=== PATIENT | female | born 1935 | race Caucasian/White ===

== ENCOUNTER → 2024-12-17 | Outpatient (CLI) | payer MEDICARE, SELFPAY ==
--- NOTE | 2024-12-17 15:55 | CT_ITS ---
PROCEDURE: EXTREMITY UPPER WITHOUT CONTRA 12/17/2024 REASON FOR EXAM: FRACTURE EVALUATION Left shoulder pain. TECHNIQUE: Axial CT images of the left shoulder obtained without intravenous contrast. Coronal and Sagittal reconstruction series were provided. One or more dose reduction techniques were used (e.g., Automated exposure control, adjustment of the mA and/or kV according to patient size, use of iterative reconstruction technique RADIATION DOSE SUMMARY: CTDlvol: 30 mGy DLP: 616 mGycm COMPARISON: None FINDINGS: Acute extensively comminuted moderately impacted fracture of the proximal humeral head and neck with maximum displacement of approximately 3.5 Cm. Articular portion of the proximal humeral head remains in articulation with the glenoid. Small glenohumeral joint effusion. Left scapula appears intact. Left clavicle appears intact. Moderate acromioclavicular osteoarthritis. Mild glenohumeral osteoarthritis. Moderate soft tissue stranding adjacent to the proximal humeral fracture. No fluid collection seen. CT/Extremity Upper without Contra IMPRESSION: Acute comminuted impacted angulated fracture of the proximal humeral head and n jeferson Reading [facility]
== END | disposition home or self-care (01) ==
LOC: CT 15:52
PROVIDERS: PCP Family Medicine; Referring Provider Orthopaedic Surgery Sports Medicine; Visit Provider Orthopaedic Surgery Sports Medicine
DX: S42.202A Unspecified fracture of upper end of left humerus, initial encounter for closed fracture (principal)
CPT/HCPCS: 73200

== ENCOUNTER 2024-12-26 11:10 | Observation (INO) | payer MEDICARE, SELFPAY ==
--- NOTE | 2024-12-25 17:52 | PAT.ANESEVAL ---
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 When Was Last Pacemaker Check QUESTION #4 FULL TEXT: You/Your Family Experience fever (hyperthermia) with Anesthesia Last Oral Intake Last Oral intake: Last Oral Intake NPO since Meds taken in AM with sips of water? Meds patient instructed to take am of surgery PONV PONV - power press supervisor: PONV - power press supervisor Female Yes 12/20/24 09:28 HX of Motion Sickness Yes 12/20/24 09:28 HX of N/V After Surgery No 12/20/24 09:28 Non-Smoker Yes 12/20/24 09:28 Duration of Surgery greater Yes 12/20/24 09:28 than 60 minutes Number of Risk Factors 4 12/20/24 09:28 PONV Score Severe Risk 12/20/24 09:28 Height & Weight Height & Weight: Anesthesia: Height & Weight Height 5 ft 12/17/24 16:20 Respiratory Assessment Respiratory Assessment - power press supervisor: Respiratory Tract Infection Hx - power press supervisor Hx Respiratory Tract Infection Yes: PNEUMONIA 10/202412/20/24 09:28 TREATED AND RESOLVED STOP Sleep Apnea STOP Sleep Apnea - power press supervisor: STOP Sleep Apnea - power press supervisor Hx Hypertension Yes: CONTROLLED WITH MEDS 12/20/24 09:28 Hx Sleep Apnea Yes 12/20/24 09:28 CPAP Yes 12/20/24 09:28 BIPAP No 12/20/24 09:28 Do you snore loudly (louder than talking or can be heard Do you often feel tired/ fatigued/ sleepy during daytime? Has anyone observed you stop breathing during sleep? STOP Results Positive 12/20/24 09:28 QUESTION #5 FULL TEXT : Do you snore loudly (louder than talking or can be heard through closed doors)? 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 Specify any problems Hx of Preganancy in last 3 No 12/20/24 09:28 Months Nurse Filling Out Transfusion DSCHRIBER 12/20/24 09:28 & Questions: Date: 12/20/24 12/20/24 09:28 Time: 09:30 12/20/24 09:28 Patient unable to answer at this time (ie. confused, unrespo /Reproduction History /Reproductive History - power press supervisor: /Reproductive Hx- power press supervisor Hx Now No 12/20/24 09:28 Gestational Age (in weeks): EDC: Hx Hx Para Hx Section SAB No 12/20/24 09:28 Active Medications Active Medications: Current Medications Generic Name Dose Route Start Last Admin Trade Name Freq PRN Reason Stop Dose Admin Acetaminophen 1,000 mg 12/26/24 08:30 Acetaminophen 500 Mg Tablet PO 12/26/24 08:31 PREOP ONE Dexamethasone Sodium Phosphate 10 mg 12/26/24 08:30 Dexamethasone 10 Mg/Ml Vial IV 12/26/24 08:31 INTRAOP ONE Gabapentin 600 mg 12/26/24 08:30 Gabapentin 600 Mg Tablet PO 12/26/24 08:31 PREOP ONE Cefazolin Sodium 2 gm/ Sodium 110 mls @ 150 mls/hr 12/26/24 08:30 Chloride IV 12/26/24 09:13 INTRAOP ONE Tranexamic Acid 1,000 mg/ 110 mls @ 660 mls/hr 12/26/24 08:30 Sodium Chloride IV 12/26/24 08:39 INTRAOP ONE Tranexamic Acid 1,000 mg/ 110 mls @ 660 mls/hr 12/26/24 08:30 Sodium Chloride IV 12/26/24 08:39 INTRAOP ONE Lactated Ringer's 1,000 mls @ 125 mls/hr 12/26/24 08:30 IV 12/26/24 16:29 [facility] Insulin Human Lispro 1 - 6 unit 12/26/24 08:30 Insulin Lispro 100 Unit/Ml Insuln.Pen SC 12/26/24 18:00 Q4H PRN PRN BG>/= 180, SEE PROTOCOL Protocol Scopolamine HBr 1 patch 12/26/24 08:30 Scopolamine 1mg/72hr Patch TD 12/26/24 08:31 PREOP ONE PFSH Medical History (Updated 12/20/24 @ 09:44 by Anita Bhatt) Loss of hearing Wears glasses Wears dentures Post-menopausal Forgetfulness Abrasion History of steroid therapy Thyroid disease Insulin dependent diabetes mellitus Arthritis History of renal disease High cholesterol Injury of head and neck Blackout Dietary restriction History of hiatal hernia Difficulty swallowing Gastric reflux Non-smoker CPAP (continuous positive airway pressure) dependence COPD (chronic obstructive pulmonary disease) Shortness of breath on exertion History of pain when walking History of edema History of echocardiogram History of stress test Cardiology follow-up encounter History of atrial fibrillation History of shingles Closed fracture of left proximal humerus Home Medications ?Medication ?Instructions ?Recorded ?Last Taken ?Type albuterol 90 mcg-budesonide 80 1 inh inhalation Q4H PRN 12/17/24 Unknown History mcg/actuation HFA aerosol inhaler albuterol sulfate 2.5 mg/0.5 mL 2.5 mg inhalation Q4H PRN 12/17/24 Unknown History solution for nebulization shortness of breath or wheezing apple cider vinegar 500 mg tablet 500 mg PO DAILY 12/17/24 Unknown History ascorbic acid (vitamin C) 250 mg 250 mg PO QDAY 12/17/24 Unknown History tablet atorvastatin 20 mg tablet 20 mg PO QDAY 12/17/24 Unknown History cinnamon bark 500 mg capsule 500 mg PO QDAY 12/17/24 Unknown History (Cinnamon) ferrous sulfate 325 mg (65 mg 325 mg PO QDAY 12/17/24 Unknown History iron) tablet furosemide 40 mg tablet 40 mg PO QDAY 12/17/24 Unknown History gabapentin 600 mg tablet 600 mg PO TID 12/17/24 Unknown History glimepiride 2 mg tablet 2 mg PO DAILY 12/17/24 Unknown History hydrocodone-acetaminophen 5-325mg 1 tab PO Q4 PRN moderate pain 12/17/24 Unknown History 5mg-325mg insulin NPH isoph U-100 human 100 20 unit subcut DAILY 12/17/24 Unknown History unit/mL (3 mL) subcutaneous pen (Humulin N NPH U-100 Insulin KwikPen) levothyroxine 88 mcg tablet 88 mcg PO DAILY 12/17/24 Unknown History losartan 50 mg tablet 50 mg PO QDAY 12/17/24 Unknown History metformin 500 mg tablet,extended 1,000 mg PO DAILY 12/17/24 Unknown History release 24 hr methenamine hippurate 1 gram tablet 1 g PO BID 12/17/24 Unknown History metoprolol tartrate 50 mg tablet 50 mg PO BID 12/17/24 Unknown History nitroglycerin 0.4 mg sublingual 0.4 mg sublingual Q5M PRN chest 12/17/24 Unknown History tablet pain omeprazole 20 mg capsule,delayed 20 mg PO QDAY 12/17/24 Unknown History release sertraline 50 mg tablet 25 mg PO QHS 12/17/24 Unknown History warfarin 6 mg tablet 6 mg PO SUTUWETHSA 12/17/24 12/18/24 History aloe vera 500 mg capsule 500 mg PO DAILY 12/20/24 Unknown History insulin NPH isoph U-100 human 100 10 unit subcut QPM 12/20/24 Unknown History unit/mL (3 mL) subcutaneous pen warfarin 6 mg tablet 9 mg PO MOFR 12/20/24 12/18/24 History Allergy/AdvReac Type Severity Reaction Status Date / Time hydrochlorothiazide AdvReac Unknown Unknown Verified 12/20/24 09:20 clindamycin AdvReac Unknown Verified 12/20/24 09:20 diphenhydramine AdvReac Diarrhea Verified 12/20/24 09:20 doxycycline AdvReac Rash Verified 12/20/24 09:20 fluconazole AdvReac Unknown Verified 12/20/24 09:20 isosorbide AdvReac Headache Verified 12/20/24 09:20 nitrofurantoin AdvReac Hives Verified 12/20/24 09:20 oxycodone AdvReac Unknown Verified 12/20/24 09:20 Penicillins AdvReac Dermatitis Verified 12/20/24 09:20 Sulfa (Sulfonamide AdvReac Swelling Verified 12/20/24 09:20 Antibiotics) Surgical History (Updated 12/20/24 @ 09:44 by Anita Bhatt) History of cardiac catheterization Hx of right cataract extraction Hx of left cataract extraction Hx of total knee arthroplasty Hx laparoscopic cholecystectomy Hx of hysterectomy S/P trigger finger release Social History household members: children Smoking Status: Never smoker alcohol intake: never Audit: Pertinent Findings Pertinent Findings EKG Perinent findings: December 21, 2024. Atrial fibrillation. Cannot rule out anterior infarct, age undetermined. 06/16/2015. Paroxysmal atrial fibrillation. Stress test pertinent findings: March 04, 2020. Normal stress electrocardiogram. No ischemia. No infarction. Poststress EF is hyperdynamic at 78%. Echo (EF%) pertinent findings: 08/28/2024. EF 60 to 65%. RVSP is 53 mmHg. No aortic valve stenosis. Consult pertinent findings: August 14, 2024. Dr. Valentin (Cardiology). 1. Syncope-vasovagal symptoms. Likely multifactorial-poor nutrition, poor fluid intake. Encourage increased intake. Encourage exercise. Will get echo to assess cardiac function. (See above). 2. Chronic atrial bknmeiizbylt-[id number] score is 5. Rate control with metoprolol. Continue Coumadin. 3. Hypertension?well-controlled. 4. Precordial pain?atypical-not exertional, is sharp, sometimes dull. Patient is taking walks without complaints. Additional pertinent findings: 12/21/2024. Hemoglobin A1c is 8.7. Glucose is 318. Recommendation Anesthesia Recommendation Anesthesia recommendation: OPTIMIZED for anesthesia (Please inform surgeons office of elevated glucose at 318. Hemoglobin A1c of 8.7. A1c is greater than 8 indicate a higher risk of postop infection and poor wound healing.)
[2024-12-26] VITALS (18 sets, daily range): BP systolic 94–141; BP diastolic 49–81; PULSE 84–106; RESP 8–20; TEMP 36.1–36.9; O2SAT 80–100; BMI 36.1
[2024-12-26 06:39] LABS: INR Fingerstick 1.2; Prothrombin Time Fingerstick 14.7 SEC (11.7-14.9)
--- NOTE | 2024-12-26 07:17 | HP.PCM_ITS ---
HPI - General HPI Narrative SARBJIT MERINO, is a 89 F who presents for left reverse total shoulder arthroplasty in the setting of a proximal humerus fracture. Patient is a diabetic incr. risks like infection or other. She understands. RAB, post op counselling, and narcotic counselling. Pain seems to be an issue, less drowsy with norco so has been using that. Left shoulder marked. no changes to h and p. will proceed. MR#: [id number] Acct: [id number] Name: SARBJIT MERINO Rep #: [id number] : 1935 Provider: Dr. Shailesh Bazzi MD Age/Sex: 89/F Location: [facility] [place] Status: Signed Intake Vital Signs 12/17/2513:34 12/18/2515:20 Height 5 ft 5 ft Weight: 185 lb BMI 36.1 Intake Visit Reasons: LEFT HUMERUS Chief Complaint: Left Humerus Fracture Allergies hydrochlorothiazide Adverse Reaction (Unknown, Verified 12/18/24 10:37) Unknownclindamycin Adverse Reaction (Verified 12/18/24 10:37) Unknowndiphenhydramine Adverse Reaction (Verified 12/18/24 10:37) Diarrheadoxycycline Adverse Reaction (Verified 12/18/24 10:37) Rashfluconazole Adverse Reaction (Verified 12/18/24 10:37) Unknownisosorbide Adverse Reaction (Verified 12/18/24 10:37) Headachenitrofurantoin Adverse Reaction (Verified 12/18/24 10:37) Hivesoxycodone Adverse Reaction (Verified 12/18/24 10:37) UnknownPenicillins Adverse Reaction (Verified 12/18/24 10:37) DermatitisSulfa (Sulfonamide Antibiotics) Adverse Reaction (Verified 12/18/24 10:37) Swelling Medications ?Medication ?Instructions ?Recorded ?Confirmed ?Type albuterol 90 mcg-budesonide 80 1 inh inhalation Q4H PRN 12/17/24 History mcg/actuation HFA aerosol inhaler albuterol sulfate 2.5 mg/0.5 mL 2.5 mg inhalation Q4H 12/17/24 12/18/24 History solution for nebulization aloe vera ml PO 12/17/24 12/18/24 History apple cider vinegar 500 mg tablet mg PO DAILY 12/17/24 12/18/24 History ascorbic acid (vitamin C) 250 mg 250 mg PO QDAY 12/17/24 12/18/24 History tablet atorvastatin 20 mg tablet 20 mg PO QDAY 12/17/24 12/18/24 History baclofen 5 mg tablet 5 mg PO BID PRN muscle spasm 2 12/17/24 12/18/24 Rx weeks #20 tabs cinnamon bark 500 mg capsule 500 mg PO QDAY 12/17/24 12/18/24 History (Cinnamon) clotrimazole 10 mg ketan 10 mg PO TID 12/17/24 12/18/24 History estradiol 0.01% (0.1 mg/gram) 1 appful vaginal ONCE 12/17/24 12/18/24 History vaginal cream ferrous sulfate 325 mg (65 mg 325 mg PO QDAY 12/17/24 12/18/24 History iron) tablet furosemide 40 mg tablet 40 mg PO QDAY 12/17/24 12/18/24 History gabapentin 600 mg tablet mg PO 12/17/24 12/18/24 History glimepiride 2 mg tablet mg PO 12/17/24 12/18/24 History hydrocodone-acetaminophen 5-325mg 1 tab PO Q4 PRN moderate pain 12/17/24 12/18/24 History 5mg-325mg insulin NPH isoph U-100 human 100 25 unit subcut BID 12/17/24 12/18/24 His tory unit/mL (3 mL) subcutaneous pen (Humulin N NPH U-100 Insulin KwikPen) levothyroxine 88 mcg tablet mcg PO 12/17/24 12/18/24 History losartan 50 mg tablet 50 mg PO QDAY 12/17/24 12/18/24 History metformin 500 mg tablet,extended 500 mg PO BID 12/17/24 12/18/24 History release 24 hr methenamine hippurate 1 gram tablet g PO 12/17/24 12/18/24 History metoprolol tartrate 50 mg tablet 50 mg PO BID 12/17/24 12/18/24 History nitroglycerin 0.4 mg sublingual mg sublingual 12/17/24 12/18/24 History tablet nystatin 100,000 unit/mL oral 5 ml PO 4X/DAY 12/17/24 12/18/24 History suspension omeprazole 20 mg capsule,delayed 20 mg PO QDAY 12/17/24 12/18/24 History release sertraline 50 mg tablet mg PO 12/17/24 12/18/24 History warfarin 6 mg tablet mg PO 12/17/24 12/18/24 History Have you fallen in the past year?: Yes [facility] Medical History History of shingles Closed fracture of left proximal humerus Surgical History S/P trigger finger release Social History household members: children Smoking Status: Never smoker alcohol intake: never HPI LEFT HUMERUS Details: This documentation accurately reflects the service provided and the decisions made by me, Dr. Shailesh Bazzi MD 12/18/24 0906. Part of today?s visit was documented by [ ], acting as scribe. SARBJIT MERINO is a 89 year old F here today for follow-up CT scan left proximal humerus fracture. Supplemental Info [facility] Imaging Services [facility] [place] [address] Extremity Upper without Contra MR#: [id number] Acct: [id number] Name: SARBJIT MERINO Rep #: [id number] : 1935 F 89 From: David Lazaro MD PCP: Dr. Franko Parsons MD Status: REG CLI Study: Extremity Upper without Contra Date of Exam: 12/17/24 Exam# [id number] Ordering Dr: Shailesh Bazzi MD PROCEDURE: EXTREMITY UPPER WITHOUT CONTRA 12/17/2024 REASON FOR EXAM: FRACTURE EVALUATION Left shoulder pain. TECHNIQUE: Axial CT images of the left shoulder obtained without intravenous contrast. Coronal and Sagittal reconstruction series were provided. One or more dose reduction techniques were used (e.g., Automated exposure control, adjustment of the mA and/or kV according to patient size, use of iterative reconstruction technique RADIATION DOSE SUMMARY: CTDlvol: 30 mGy DLP: 616 mGycm COMPARISON: None FINDINGS: Acute extensively comminuted moderately impacted fracture of the proximal humeral head and neck with maximum displacement of approximately 3.5 Cm. Articular portion of the proximal humeral head remains in articulation with the glenoid. Small glenohumeral joint effusion. Left scapula appears intact. Left clavicle appears intact. Moderate acromioclavicular osteoarthritis. Mild glenohumeral osteoarthritis. Moderate soft tissue stranding adjacent to the proximal humeral fracture. No fluid collection seen. CT/Extremity Upper without Contra IMPRESSION: Acute comminuted impacted angulated fracture of the proximal humeral head and neck Reading Location: [facility] CT scan shows the proximal humerus to be comminuted fracture at the calcar multipart as well as 100% displacement of the articular surface of posterior to the humeral shaft. Coding Level of Care Code Off vis,est,level 4 Diagnoses Closed fracture of left proximal humerus S42.A Assessment and Plan Assessment and Plan (1) Closed fracture of left proximal humerus: Status: Acute Plan: 89-year-old female follow-up CT scan left proximal humerus #. This is a comminuted multipart 10% displaced proximal humerus fracture in a low demand 89-year-old female. Went over the options both nonsurgical and surgical. Typically the most reliable operation would be reverse total shoulder arthroplasty. Explained the pros and cons risks benefits as well as postoperative recovery of that to the patient as well as her caregivers. She wished to proceed with a left reverse total shoulder arthroplasty. The patient understood no further questions or concerns. Will have to get preoperative clearance from the GP as well as manage the INR to come down as the patient is on warfarin. Patient had slightly higher risk given the cardiac history and diabetes and other problems for increased risk of infection and other problems given the age. Patient does not use ambulatory aids. Pros and cons risks and benefits were discussed with the patient including but not limited to infection, pain, stiffness, bleeding, damage to surrounding structures, neurovascular injury, recurrence or retear, failure or wear of hardware or fixation, instability, fracture, deep vein thrombosis and pulmonary embolism, anesthetic risks, , patient dissatisfaction, need for further surgery and other risks. Patient understood and wished to proceed with surgery, and signed the informed consent documentation. Clinical Quality Measures Falls Risk Screening/Assistive Devices Have you fallen in the past year?: Yes Ortho Exam General General: Yes no acute distress Neurologic: Yes alert and Yes oriented x3 Psychologic: Yes reasonable and appropriate [facility] Medical History (Updated 12/20/24 @ 09:44 by Anita Bhatt) Loss of hearing Wears glasses Wears dentures Post-menopausal Forgetfulness Abrasion History of steroid therapy Thyroid disease Insulin dependent diabetes mellitus Arthritis History of renal disease High cholesterol Injury of head and neck Blackout Dietary restriction History of hiatal hernia Difficulty swallowing Gastric reflux Non-smoker CPAP (continuous positive airway pressure) dependence COPD (chronic obstructive pulmonary disease) Shortness of breath on exertion History of pain when walking History of edema History of echocardiogram History of stress test Cardiology follow-up encounter History of atrial fibrillation History of shingles Closed fracture of left proximal humerus Home Medications ?Medication ?Instructions ?Recorded ?Last Taken ?Type albuterol 90 mcg-budesonide 80 1 inh inhalation Q4H NE N 12/17/24 Unknown History mcg/actuation HFA aerosol inhaler albuterol sulfate 2.5 mg/0.5 mL 2.5 mg inhalation Q4H PRN 12/17/24 Unknown History solution for nebulization shortness of breath or wheez ing apple cider vinegar 500 mg tablet 500 mg PO DAILY 11/29 04/25 Unknown History ascorbic acid (vitamin C) 250 mg 250 mg PO QDAY Unknown History tablet atorvastatin 20 mg tablet 20 mg PO QDAY 12/17/24 Unkno wn History cinnamon bark 500 mg capsule 500 mg PO QDAY 12/17/24 U nknown History (Cinnamon) ferrous sulfate 325 mg (65 mg 325 mg PO QDAY 12/17/24 Unknown History iron) tablet furosemide 40 mg tablet 40 mg PO QDAY 12/17/24 Unkno wn History gabapentin 600 mg tablet 600 mg PO TID 12/17/24 Unkno wn History glimepiride 2 mg tablet 2 mg PO DAILY 12/17/24 Unkno wn History hydrocodone-acetaminophen 5-325mg 1 tab PO Q4 PRN mode rate pain 12/17/24 12/26/24 History 5mg-325mg insulin NPH isoph U-100 human 100 20 unit subcut DAILY 12/17/24 Unknown History unit/mL (3 mL) subcutaneous pen (Humulin N NPH U-100 Insulin KwikPen) levothyroxine 88 mcg tablet 88 mcg PO DAILY 12/17/24 0 12/26/24 History losartan 50 mg tablet 50 mg PO QDAY 12/17/2412/26 History metformin 500 mg tablet,extended 1,000 mg PO DAILY Unknown History release 24 hr methenamine hippurate 1 gram tablet 1 g PO BID 5 Unknown History metoprolol tartrate 50 mg tablet 50 mg PO BID 12/17/24 12/26/24 History nitroglycerin 0.4 mg sublingual 0.4 mg sublingual Q5M PRN chest 12/17/24 Unknown History tablet pain omeprazole 20 mg capsule,delayed 20 mg PO QDAY 5 12/26/24 History release sertraline 50 mg tablet 25 mg PO QHS 12/17/24 Unknow n History warfarin 6 mg tablet 6 mg PO SUTUWETHSA 12/17/24 12/18/24 History aloe vera 500 mg capsule 500 mg PO DAILY 12/20/24 Unk nown History insulin NPH isoph U-100 human 100 10 unit subcut QPM 0 12/20/24 Unknown History unit/mL (3 mL) subcutaneous pen warfarin 6 mg tablet 9 mg PO MOFR 12/20/24 History Allergy/AdvReac Type Severity Reaction Status Date / Time hydrochlorothiazide AdvReac Unknown Unknown Verified 12/26/24 07:12 clindamycin AdvReac Unknown Verified 12/26/24 07:12 diphenhydramine AdvReac Diarrhea Verified 12/26/24 07:12 doxycycline AdvReac Rash Verified 12/26/24 07:12 fluconazole AdvReac Unknown Verified 12/26/24 07:12 isosorbide AdvReac Headache Verified 12/26/24 07:12 nitrofurantoin AdvReac Hives Verified 12/26/24 07:12 oxycodone AdvReac Unknown Verified 12/26/24 07:12 Penicillins AdvReac Dermatitis Verified 12/26/24 07:12 Sulfa (Sulfonamide AdvReac Swelling Verified 12/26/24 07:12 Antibiotics) Surgical History (Updated 12/20/24 @ 09:44 by Anita Bhatt) History of cardiac catheterization Hx of right cataract extraction Hx of left cataract extraction Hx of total knee arthroplasty Hx laparoscopic cholecystectomy Hx of hysterectomy S/P trigger finger release Social History household members: children Smoking Status: Never smoker alcohol intake: never Results Lab / Micro Data Labs: Laboratory Results - last 24 hr 12/26/24 06:37: POC PT 14.7, INR 1.2
[2024-12-26] MEDS: Scopolamine 1mg/72hr Patch 1 PATCH TD (07:32)
[2024-12-26] MEDS: Lactated Ringers 1,000 ML 15 ML IV (07:32)
[2024-12-26] MEDS: Acetaminophen 500 MG Tablet 1000 MG PO ×3 (07:33→21:26)
[2024-12-26] MEDS: Gabapentin 600 MG Tablet PO ×2 (07:33→21:25)
--- NOTE | 2024-12-26 07:51 | PRE.ANES_ITS ---
ASA Classification* ASA Classification ASA Classification: 3 Assessment & Plan Anesthesia* Anesthesia Assessment Anesthesia Assessment: Discussed sedation and/or anesthesia options, risks, benefits, and alternatives with patient/parents/legal guardian/POA. Questions invited. The patient/parents/legal guardian/POA seems to understand and agrees to proceed with anesthesia plan. Reviewed the physical assessment, medical history, allergy history and patient home medications list prior to surgery/procedure/anesthetic and documented any changes. Performed airway and anesthesia risk assessments. Anesthesia Type Anesthesia Type: General and Block (Interscalene) History Source History Obtained from:: Patient and Chart Anesthesia Focused Assessment* Temperature: 97.6 F Pulse Rate: 88 Blood Pressure: 141/78 Respiratory Rate: 18 Pulse Ox: 97 Oxygen Delivery Method: Room Air Airway Assessment Mouth opens: >3 cm Mallampati Score: II Teeth Condition: Dentures and Full Neck Range of motion (ROM): Limited ROM Focused Labs Anesthesia Preop lab: CBC CHEMISTRY Magnesium Pending 12/26/24 07:15 12/26/24 COAG Pre-Assessment Diagnosis/Proposed Procedure Planned Operative Procedure(s): ERAS LEFT REVERSE TOTAL SHOULDER ARTHROPLASTY Anesthesia History 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 When Was Last Pacemaker Check QUESTION #4 FULL TEXT: You/Your Family Experience fever (hyperthermia) with Anesthesia Last Oral Intake Last Oral intake: Last Oral Intake NPO since 23:30 12/26/24 07:27 Meds taken in AM with sips of Yes 12/26/24 07:27 water? Meds patient instructed to norco 12/26/24 07:27 take am of surgery metoprolol losartan prilosec levothyroxine PONV PONV - cloth finishing range operator chief: PONV - cloth finishing range operator chief Female Yes 12/20/24 09:28 HX of Motion Sickness Yes 12/20/24 09:28 HX of N/V After Surgery No 12/20/24 09:28 Non-Smoker Yes 12/20/24 09:28 Duration of Surgery greater Yes 12/20/24 09:28 than 60 minutes Number of Risk Factors 4 12/20/24 09:28 PONV Score Severe Risk 12/20/24 09:28 Height & Weight Height & Weight: Anesthesia: Height & Weight Height 5 ft 12/26/24 07:27 Weight: 83.915 kg 12/26/24 07:27 Body Mass Index (BMI) 36.1 12/26/24 07:27 Respiratory Assessment Respiratory Assessment - cloth finishing range operator chief: Respiratory Tract Infection Hx - cloth finishing range operator chief Hx Respiratory Tract Infection Yes: PNEUMONIA 10/202412/20/24 09:28 TREATED AND RESOLVED STOP Sleep Apnea STOP Sleep Apnea - cloth finishing range operator chief: STOP Sleep Apnea - cloth finishing range operator chief Hx Hypertension Yes: CONTROLLED WITH MEDS 12/20/24 09:28 Hx Sleep Apnea Yes 12/20/24 09:28 CPAP Yes 12/20/24 09:28 BIPAP No 12/20/24 09:28 Do you snore loudly (louder than talking or can be heard Do you often feel tired/ fatigued/ sleepy during daytime? Has anyone observed you stop breathing during sleep? STOP Results Positive 12/20/24 09:28 QUESTION #5 FULL TEXT : Do you snore loudly (louder than talking or can be heard through closed doors)? 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 Specify any problems Hx of Preganancy in last 3 No 12/20/24 09:28 Months Nurse Filling Out Transfusion DSCHRIBER 12/20/24 09:28 & Questions: Date: 12/20/24 12/20/24 09:28 Time: 09:30 12/20/24 09:28 Patient unable to answer at this time (ie. confused, unrespo /Reproduction History /Reproductive History - cloth finishing range operator chief: /Reproductive Hx- cloth finishing range operator chief Hx Now No 12/20/24 09:28 Gestational Age (in weeks): EDC: Hx Hx Para Hx Section SAB No 12/20/24 09:28 Active Medications Active Medications: Current Medications Generic Name Dose Route Start Last Admin Trade Name Freq PRN Reason Stop Dose Admin Acetaminophen 1,000 mg 12/26/24 08:30 12/26/24 07:33 Acetaminophen 500 Mg Tablet PO 12/26/24 08:31 1,000 mg PREOP ONE Administration Dexamethasone Sodium Phosphate 10 mg 12/26/24 08:30 Dexamethasone 10 Mg/Ml Vial IV 12/26/24 08:31 INTRAOP ONE Gabapentin 600 mg 12/26/24 08:30 12/26/24 07:33 Gabapentin 600 Mg Tablet PO 12/26/24 08:31 600 mg PREOP ONE Administration Cefazolin Sodium 2 gm/ Sodium 110 mls @ 150 mls/hr 12/26/24 08:30 Chloride IV 12/26/24 09:13 INTRAOP ONE Tranexamic Acid 1,000 mg/ 110 mls @ 660 mls/hr 12/26/24 08:30 Sodium Chloride IV 12/26/24 08:39 INTRAOP ONE Tranexamic Acid 1,000 mg/ 110 mls @ 660 mls/hr 12/26/24 08:30 Sodium Chloride IV 12/26/24 08:39 INTRAOP ONE Lactated Ringer's 1,000 mls @ 125 mls/hr 12/26/24 08:30 IV 12/26/24 16:29 .Q8H KATARINA Lactated Ringer's 1,000 mls @ 15 mls/hr 12/26/24 07:00 12/26/24 07:32 IV 15 mls/hr .Q48H KATARINA Administration Insulin Human Lispro 1 - 6 unit 12/26/24 08:30 Insulin Lispro 100 Unit/Ml Insuln.Pen SC 12/26/24 18:00 Q4H PRN PRN BG>/= 180, SEE PROTOCOL Protocol Scopolamine HBr 1 patch 12/26/24 08:30 12/26/24 07:32 Scopolamine 1mg/72hr Patch TD 12/26/24 08:31 1 mg PREOP ONE Administration PFSH Medical History (Updated 12/20/24 @ 09:44 by Anita Bhatt) Loss of hearing Wears glasses Wears dentures Post-menopausal Forgetfulness Abrasion History of steroid therapy Thyroid disease Insulin dependent diabetes mellitus Arthritis History of renal disease High cholesterol Injury of head and neck Blackout Dietary restriction History of hiatal hernia Difficulty swallowing Gastric reflux Non-smoker CPAP (continuous positive airway pressure) dependence COPD (chronic obstructive pulmonary disease) Shortness of breath on exertion History of pain when walking History of edema History of echocardiogram History of stress test Cardiology follow-up encounter History of atrial fibrillation History of shingles Closed fracture of left proximal humerus Home Medications ?Medication ?Instructions ?Recorded ?Last Taken ?Type albuterol 90 mcg-budesonide 80 1 inh inhalation Q4H MA N 12/17/24 Unknown History mcg/actuation HFA aerosol inhaler albuterol sulfate 2.5 mg/0.5 mL 2.5 mg inhalation Q4H PRN 12/17/24 12/25/24 History solution for nebulization shortness of breath or wheez ing apple cider vinegar 500 mg tablet 500 mg PO DAILY 11/2912/25/24 History ascorbic acid (vitamin C) 250 mg 250 mg PO QDAY 12/25/24 History tablet atorvastatin 20 mg tablet 20 mg PO QDAY 12/17/2412/25 History cinnamon bark 500 mg capsule 500 mg PO QDAY 12/17/24 0 12/25/24 History (Cinnamon) ferrous sulfate 325 mg (65 mg 325 mg PO QDAY 12/17/24 Unknown History iron) tablet furosemide 40 mg tablet 40 mg PO QDAY 12/17/2412/25 History gabapentin 600 mg tablet 600 mg PO TID 12/17/2412/25 History glimepiride 2 mg tablet 2 mg PO DAILY 12/17/24 Unkno wn History hydrocodone-acetaminophen 5-325mg 1 tab PO Q4 PRN mode rate pain 12/17/24 12/26/24 History 5mg-325mg insulin NPH isoph U-100 human 100 20 unit subcut DAILY 12/17/24 12/25/24 History unit/mL (3 mL) subcutaneous pen (Humulin N NPH U-100 Insulin KwikPen) levothyroxine 88 mcg tablet 88 mcg PO DAILY 12/17/24 0 12/26/24 History losartan 50 mg tablet 50 mg PO QDAY 12/17/2412/26 History metformin 500 mg tablet,extended 1,000 mg PO DAILY 12/25/24 History release 24 hr methenamine hippurate 1 gram tablet 1 g PO BID 5 12/25/24 History metoprolol tartrate 50 mg tablet 50 mg PO BID 12/17/24 12/26/24 History nitroglycerin 0.4 mg sublingual 0.4 mg sublingual Q5M PRN chest 12/17/24 Unknown History tablet pain omeprazole 20 mg capsule,delayed 20 mg PO QDAY 5 12/26/24 History release sertraline 50 mg tablet 25 mg PO QHS 12/17/24 History warfarin 6 mg tablet 6 mg PO SUTUWETHSA 12/17/24 12/18/24 History aloe vera 500 mg capsule 500 mg PO DAILY 12/20/24 History insulin NPH isoph U-100 human 100 10 unit subcut QPM 0 12/20/24 12/25/24 History unit/mL (3 mL) subcutaneous pen warfarin 6 mg tablet 9 mg PO MOFR 12/20/24 History Allergy/AdvReac Type Severity Reaction Status Date / Time hydrochlorothiazide AdvReac Unknown Unknown Verified 12/26/24 07:12 clindamycin AdvReac Unknown Verified 12/26/24 07:12 diphenhydramine AdvReac Diarrhea Verified 12/26/24 07:12 doxycycline AdvReac Rash Verified 12/26/24 07:12 fluconazole AdvReac Unknown Verified 12/26/24 07:12 isosorbide AdvReac Headache Verified 12/26/24 07:12 nitrofurantoin AdvReac Hives Verified 12/26/24 07:12 oxycodone AdvReac Unknown Verified 12/26/24 07:12 Penicillins AdvReac Dermatitis Verified 12/26/24 07:12 Sulfa (Sulfonamide AdvReac Swelling Verified 12/26/24 07:12 Antibiotics) Surgical History (Updated 12/20/24 @ 09:44 by Anita Bhatt) History of cardiac catheterization Hx of right cataract extraction Hx of left cataract extraction Hx of total knee arthroplasty Hx laparoscopic cholecystectomy Hx of hysterectomy S/P trigger finger release Social History household members: children Smoking Status: Never smoker alcohol intake: never Review of Systems (Anesthesia) ROS Narrative System reviewed and no additional complaints, except as documented.
[2024-12-26 08:02] LABS: Bedside Glucose 206 mg/dL (74-106)
[2024-12-26] MEDS: Insulin Lispro 100 UNIT/ML INSULN.PEN SC ×3 (08:05→22:39)
[2024-12-26] MEDS: Cefazolin 2 GM in 0.9% Normal Saline (100mL Bag) 100 ML IV (08:22)
[2024-12-26 08:24] LABS: Magnesium 1.9 mg/dL (1.5-2.2)
[2024-12-26] MEDS: TXA 1000mg in NS100 100ml (IVPB at Closure) 660 MG IV (08:55)
[2024-12-26] MEDS: Magnesium 2 GM for ERAS IV (09:09)
--- NOTE | 2024-12-26 09:45 | RAD_ITS ---
PROCEDURE: SHOULDER MIN 2 VIEWS 12/26/2024 REASON FOR EXAM: LEFT REVERSE TOTAL SHOULDER REPLACEMENT TECHNIQUE: Fluoroscopy with 7 spot images FINDINGS: Fluoro time 18.2 seconds Cumulative dose 2.01 mGy Spot images with reverse shoulder replacement noted appears intact and anatomic. No fracture or dislocation identified. RAD/Shoulder min 2 Views IMPRESSION: Fluoroscopy as above. Reading Location: [id number]
[2024-12-26] MEDS: TXA 1000mg in NS100 100ml (IVPB at Incision) 660 MG IV (10:28)
--- NOTE | 2024-12-26 10:45 | PCM.OPRPT ---
Problems Associated Problem List Diagnoses (1) Closed fracture of left proximal humerus: Procedures Musculoskeletal 20xxx-29xxx: Other Procedure See Report Operative Report (Standard) Operative Information Date of Procedure: 12/26/24 Pre-Operative Diagnosis: Left proximal humerus fracture Post-Operative Diagnosis: Same Surgery/Procedure Performed: Left reverse total shoulder arthroplasty, biceps tenodesis educational recruiter: No Type of Anesthesia: Block,Regional and General RN Documented Start/Stop Times: Operation Date: 12/26/24 08:30 Case Time Into Pre-Op 12/26/24 06:47 Anesthesia Start 12/26/24 08:22 Into Room 12/26/24 08:22 Out of Pre-Op 12/26/24 08:44 Procedure Start 12/26/24 08:56 Procedure End 12/26/24 10:43 Anesthesia End 12/26/24 10:51 Out of Room 12/26/24 10:51 Into Recovery 12/26/24 10:52 Procedure Start Time: 08:56 Procedure Stop Time: 10:43 Select all DRAINS/GRAFTS/IMPLANTS that apply: Prosthetic device Prosthetic device details: Brittani perform fracture stem reverse total shoulder arthroplasty Estimated Blood Loss: 100 Specimen collected: No Description of surgery: Patient brought to the operating room theater. Placed supine on the beachchair positioner. All bony prominences padded. General anesthesia induced. 2 g IV Ancef administered prior to the start of the case. 1 g IV tranexamic acid given IV at the start and at the end. SCDs legs. Patient sat up at a 45 degree angle. Arm positioner use of the left side. Upper extremity prepped and draped in the usual sterile fashion with chlorhexidine-based prep solution allowing over 3 minutes drying time prior to draping. Preoperative timeout performed to confirm the site patient and the surgery. I began by making a standard deltopectoral incision carried the dissection down through skin and subcutaneous tissue achieved meticulous hemostasis. Identified the cephalic vein protected that retracted laterally. Incised on the lateral aspect of the conjoined tendon retracted this medially. Protected the axillary nerve. Identified the subscapularis tendon put stay sutures in that made a small osteotomy of the lesser tuberosity. I remove the humeral head and 1 fragment. I excised a portion of the anterior leading edge of the rotator cuff tendon. I performed a biceps tenotomy through the rotator interval to identify the rotator interval. Performed a biceps tenodesis to the upper border of the pectoralis major and released a little bit of the upper border pectoralis major to gain external rotation. Identified the glenoid. I developed the interval between the subscapularis and the the capsule as well as excised in the anterior capsule as well as circumferentially excised and the labrum around the glenoid. Next size the glenoid according to my preoperative templating this was a +3 mm offset to reverse baseplate size 25 mm. This appeared appropriately sized. Did backside reaming over top of the pin that was central as well as just slightly inferior from the equator. Drilled for the central peg as well as the central drill bit which measured a 35 mm. I inserted the baseplate using a 36 mm central screw with the 25 mm Tornier perform reverse augmented baseplate +3 mm. This achieved good purchase. I then put the nonlocking compression screws at 12 and 6:00. Drilled and inserted the screws for these as well as use the anterior and posterior the 3:00 and 9 o'clock position for the locking screws of the still achieve good purchase in the bone. I then used pulse lavage and then impacted and screwed on the 36 mm Tornier perform reverse glenosphere. Achieve good purchase. I then turned my attention to the humeral side. I sequentially sized and trialed up to a size 9 perform humeral stem length of 130 mm. This achieved good purchase so I trialed up to last 3 mm retentive polyethylene component which achieved good fixation good tension on the conjoined tendon no impingement and full range of motion in forward elevation extension as well as internal rotation with the arm in 90 degrees of abduction. Trial components removed pulse lavage used and then final component assembled on the back table with bone grafting from the humeral head into the slot in the metaphyseal area of the component. This was then impacted into place in 30 degrees of retroversion in line with the arm. I then used the drop-down guide to insert a locking transverse screw through the component in the proximal humeral shaft, open reduction internal fixation of the shaft. This was a size 24 mm long screw. The final polyethylene was selected with a retentive polyethylene with the past 3 mm and then impacted into place and the shoulder reduced and again taken through for a full trial and felt to be stable. The subscapularis was unable to be appropriately repaired due to lateralized and distalizing the arm so I chose not to repair that. Wound thoroughly irrigated subcutaneous tissue closed with 2-0 Vicryl suture skin with 3-0 Monocryl. Skin cleaned with wet and dry dressing followed application of Steri-Strips over Mepilex border dressing as well as another small dressing for the percutaneous incision for the screw. Patient upper extremity placed into an abduction pillow sling woken up from general anesthetic transferred off the operating table taken to postanesthetic care unit in stable condition. All sponge needle instrument counts were correct no complications. Plan for the patient observation overnight discharge home when they are stable and follow-up in the office within 2 weeks time. cpt [id number], [id number], [id number] Surgical Findings: as above Complications Complications: No Admit VTE Documentation VTE Present on Admission: No VTE Mechan Device Prophylaxis: SCD's VTE Pharm Prophylaxis ordered?: No Reason prophylaxis not ordered: Treatment Not Indicated
--- NOTE | 2024-12-26 10:57 | PCM.POST.ANE ---
Anesthesia: Postop Eval I Current Vital Signs Temperature: 97.1 F Pulse Rate: 94 Blood Pressure: 118/62 Respiratory Rate: 20 Pulse Ox: 100 Assessment Airway patent: Yes Spontaneous unlabored respirations: Yes nausea: No Vomiting: No Anesthesia Complication: No Fluid Hydration Crystalloid volume administer (ml): 400 Total IV fluid infused: 400 Progress Note Anesthesia document: Postop Eval 1 completed: Yes
[2024-12-26 11:34] LABS: Bedside Glucose 242 mg/dL (74-106)
--- NOTE | 2024-12-26 13:28 | POSTOPAN2_ITS ---
Anesthesia Postop Eval I Sum Postop Eval Completion status Anesthesia document: Postop Eval 1 completed: Yes Anesthesia Postop Eval I Summary Anesthesia Postop Eval I Summary: Anesthesia Postop Eval I: Assessment Summary Airway patent Yes 12/26/24 10:57 [email or web address] Spontaneous unlabored Yes 12/26/24 10:57 [email or web address] [email or web address] respirations Mental status nausea No 12/26/24 10:57 [email or web address] Vomiting No 12/26/24 10:57 [email or web address] Anesthesia Postop Eval I: Fluid Summary Crystalloid volume administer 400 12/26/24 10:57 [email or web address] (ml) Colloids volume administered ( ml) Blood Product volume administered (ml) Total IV fluid infused 400 12/26/24 10:57 [email or web address] Anesthesia Postop Eval I: Summary Notes Anesthesia Complication No 12/26/24 10:57 [email or web address] Anesthesia Complication Comment: Post-operative progress note Anesthesia: Postop Eval II Evaluation Mental status: Awake Pain Level: 2 nausea: No Vomiting: No
--- NOTE | 2024-12-26 13:28 | PCM.POSTANE2 ---
Anesthesia Postop Eval I Sum Postop Eval Completion status Anesthesia document: Postop Eval 1 completed: Yes Anesthesia Postop Eval I Summary Anesthesia Postop Eval I Summary: Anesthesia Postop Eval I: Assessment Summary Airway patent Yes 12/26/24 10:57 [email or web address] Spontaneous unlabored Yes 12/26/24 10:57 [email or web address] respirations Mental status nausea No 12/26/24 10:57 [email or web address] Vomiting No 12/26/24 10:57 [email or web address] Anesthesia Postop Eval I: Fluid Summary Crystalloid volume administer 400 12/26/24 10:57 [email or web address] (ml) Colloids volume administered ( ml) Blood Product volume administered (ml) Total IV fluid infused 400 12/26/24 10:57 [email or web address] Anesthesia Postop Eval I: Summary Notes Anesthesia Complication No 12/26/24 10:57 [email or web address] Anesthesia Complication Comment: Post-operative progress note Anesthesia: Postop Eval II Evaluation Mental status: Awake Pain Level: 2 nausea: No Vomiting: No
[2024-12-26] MEDS: Cefazolin 1 GM/50 ML BAG IV ×2 (14:10→21:24)
--- NOTE | 2024-12-26 15:09 | NURSING ---
CPS notified that pt will have her own cpap to use at [facility].
[2024-12-26 17:34] LABS: Bedside Glucose 350 mg/dL (74-106)
--- NOTE | 2024-12-26 19:21 | PCM.PN.HOSP ---
Reason for Visit Reason for Visit: Diagnoses Unspecified fracture of upper end of left humerus, initial encounter for closed fracture (12/26/24) Subjective Subjective Feeling fine postoperatively. Patient's arm is still numb. Objective Data Objective Data Vital Signs: Vital Signs Temp Pulse Resp BP Pulse Ox O2 Del Method O2 Flow Rate 36.9 C 95 16 133/75 H 98 Nasal Cannula 2 12/26/24 16:00 12/26/24 16:36 12/26/24 16:36 12/26/24 16:36 12/26/24 16:36 12/26/24 16:36 12/26/24 16:36 Oxygen Flow Rate (L/min) 2 Oxygen Delivery Method Nasal Cannula Weight: 83.915 kg Body Mass Index (BMI) 36.1 Intake & Output: Intake and Output for Last 24 Hours 12/24/24 12/25/24 12/26/24 23:59 23:59 23:59 Intake Total 153.25 / 153.25 Balance 153.25 / 153.25 Lab / Micro Data Labs: Laboratory Results - last 24 hr 12/26/24 06:37: POC PT 14.7, INR 1.2 12/26/24 07:15: Magnesium 1.9, Blood Type A POSITIVE, Antibody Screen NEGATIVE 12/26/24 07:26: POC Glucose 206 H 12/26/24 11:14: POC Glucose 242 H 12/26/24 16:32: POC Glucose 350 H Micro: Microbiology 12/26/24 07:15 Nasal Secretion MRSA (PCR) - Final Physical Exam Const alert and no apparent distress Constitutional Narrative: Up in bed. Nontoxic. Watching TV. HEENT head/scalp atraumatic and moist oral mucous membranes Resp normal respiratory effort, no retractions, no use of accessory muscles and clear to auscultation bilaterally Cardio regular rate, regular rhythm, S1 normal heart sound and S2 normal heart sound GI normal to inspection, nondistended, normoactive bowel sounds, soft to palpation, non-tender and non-distended Extremity Extremity Narrative: Left arm in a sling. Assessment & Plan Assessment/Plan (1) Shoulder fracture, left: PLAN: Status post left reverse total shoulder arthroplasty Management per orthopedics PLAN: Plan Atrial fibrillation: Continue with metoprolol tartrate 50 mg twice daily. Given the patient's surgery will defer to orthopedics as to when the warfarin can be resumed. Depression: Continue sertraline Diabetes mellitus type 2, insulin-dependent: Continue with NPH dosings Hypertension: Continue with losartan Hypothyroidism: Continue levothyroxine Anemia: Continue with ferrous sulfate VTE prophylaxis: Defer to the primary service. Thank you to consult. The hospital service will follow along during this patient's hospitalization. Charges/Coding Visit Charges Office Visits / Consults: [id number] OV L3 Est 20min
[2024-12-26] MEDS: Pantoprazole Sodium 20 MG Tablet PO (20:29)
[2024-12-26] MEDS: Losartan Potassium 50 MG Tablet PO (20:30)
[2024-12-26] MEDS: Metoprolol Tartrate 50 MG Tablet PO (21:25)
[2024-12-26] MEDS: Senna/Docusate Sodium 1 Tablet 2 TABLET PO (21:26)
[2024-12-26] MEDS: Atorvastatin Calcium 20 MG Tablet PO (21:26)
[2024-12-26] MEDS: Methenamine Hippurate 1 GM Tablet PO (21:26)
[2024-12-26] MEDS: Sertraline 50 MG Tablet 25 MG PO (21:27)
[2024-12-26] MEDS: Insulin NPH Human 100 UNITS/ML PEN 10 UNITS SC (22:40)
[2024-12-27] VITALS (9 sets, daily range): BP systolic 104–117; BP diastolic 46–54; PULSE 75–88; RESP 16–18; TEMP 36.2–36.8; O2SAT 78–100
[2024-12-27 00:32] LABS: Bedside Glucose 424 mg/dL (74-106)
[2024-12-27] MEDS: Insulin Lispro 100 UNIT/ML INSULN.PEN SC ×3 (06:18→16:06)
[2024-12-27] MEDS: Levothyroxine 88 MCG Tablet PO (06:20)
[2024-12-27] MEDS: Gabapentin 600 MG Tablet PO ×2 (06:21→14:17)
[2024-12-27] MEDS: Baclofen 10 MG Tablet 5 MG PO (06:21)
[2024-12-27] MEDS: Acetaminophen 500 MG Tablet 1000 MG PO ×2 (06:21→14:18)
[2024-12-27 06:43] LABS: Bedside Glucose 350 mg/dL (74-106)
[2024-12-27] MEDS: Budesonide Respules 0.5 MG/2 ML AMPUL.NEB. INHALATION (06:54)
[2024-12-27 07:51] LABS: Hematocrit 27.3 % (37-47); Hemoglobin 8.8 g/dL (12.0-15.0); Mean Corp Hgb Conc 32.2 g/dL (32-36); Mean Corpuscular Volume 96.1 fL (81-99); Mean Platelet Vol. 10.1 fl (6.2-12.0); Platelet Count 304 K/mm3 (150-450); RBC Distribution Width CV 14.3 % (11.6-14.6); RBC Distribution Width SD 49.4 fl (35.1-43.9); Red Blood Count 2.84 M/mm3 (4.2-5.4)
[2024-12-27] MEDS: Senna/Docusate Sodium 1 Tablet 2 TABLET PO (08:13)
[2024-12-27] MEDS: Metoprolol Tartrate 50 MG Tablet PO (08:14)
[2024-12-27] MEDS: Pantoprazole Sodium 20 MG Tablet PO (08:14)
[2024-12-27] MEDS: Aspirin E.C. 81 MG Tablet PO (08:14)
[2024-12-27] MEDS: Methenamine Hippurate 1 GM Tablet PO (08:14)
[2024-12-27] MEDS: Furosemide 40 MG Tablet PO (08:15)
[2024-12-27] MEDS: Insulin NPH Human 100 UNITS/ML PEN 20 UNITS SC (08:15)
[2024-12-27 08:19] LABS: Anion Gap 10 (5-15); BUN 36 mg/dL (4-19); BUN/Creat Ratio 24.1 RATIO (10-20); Calcium,Total 8.9 mg/dL (7.6-11.0); Carbon Dioxide 28.6 mmol/L (21.0-32.0); Chloride 95 mmol/L (98-108); Creatinine, Serum 1.49 mg/dL (0.70-1.20); EST Glomerular Filtration Rate 34 (>60); Estimated Creatinine Clearance 25.08 ml/min (50-250); Glucose 352 mg/dL (70-99); Potassium 4.5 mmol/L (3.3-5.1); Sodium Level 134 mmol/L (133-145)
[2024-12-27] MEDS: 0.9% Saline Lock 10 ML Syringe IV (08:21)
[2024-12-27 08:30] LABS: International Normalized Ratio 1.1; Prothrombin Time (Protime)PT. 14.2 SECONDS (11.7-14.9)
--- NOTE | 2024-12-27 10:37 | PCM.PN.HOSP ---
Reason for Visit Reason for Visit: Diagnoses Unspecified fracture of upper end of left humerus, initial encounter for closed fracture (12/26/24) Fracture of left shoulder girdle, part unspecified, initial encounter for closed fracture (12/26/24) Subjective Subjective Saw patient at bedside this morning, daughter present. Patient was sitting back comfortably in bedside chair, in no acute distress. Left arm was stable in sling. Left arm pain currently with generally good pain control with pain medication. Patient was requiring 2 L nasal cannula to maintain appropriate oxygen saturations. On lung auscultation, breath sounds were diminished in bilateral lung bases but otherwise patient had good air movement throughout was noted. She noted that she required supplemental oxygen at home for short time after a prior orthopedic procedure. No other new concerns today. Objective Data Objective Data Vital Signs: Vital Signs Temp Pulse Resp BP Pulse Ox O2 Del Method O2 Flow Rate 97.8 F 79 16 110/46 L 100 Nasal Cannula 2 12/27/24 07:52 12/27/24 08:14 12/27/24 07:52 12/27/24 07:52 12/27/24 07:52 12/27/24 07:52 12/27/24 08:15 Oxygen Flow Rate (L/min) 2 Oxygen Delivery Method Nasal Cannula Weight: 83.915 kg Body Mass Index (BMI) 36.1 Intake & Output: Intake and Output for Last 24 Hours 12/25/24 12/26/24 12/27/24 23:59 23:59 23:59 Intake Total 203.25 / 203.25 207.25 / 207.25 Output Total 300 / 300 Balance 203.25 / -96.75 -92.75 / -92.75 Lab / Micro Data 12/27/24 07:40 12/27/24 07:40 Labs: Laboratory Results - last 24 hr 12/26/24 11:14: POC Glucose 242 H 12/26/24 16:32: POC Glucose 350 H 12/26/24 21:20: POC Glucose 424 H 12/27/24 06:17: POC Glucose 350 H 12/27/24 07:40: WBC 11.0, RBC 2.84 L, Hgb 8.8 L, Hct 27.3 L, MCV 96.1, MCH 31.0, MCHC 32.2, RDW Std Deviation 49.4 H, RDW Coeff of Stuart 14.3, Plt Count 304, MPV 10.1, PT 14.2, INR 1.1, Sodium 134, Potassium 4.5, Chloride 95 L, Carbon Dioxide 28.6, Anion Gap 10, BUN 36 H, Creatinine 1.49 H, Estim Creat Clear Calc 25.08 L, Est GFR (MDRD) Non-Af 34 L, BUN/Creatinine Ratio 24.1 H, Glucose 352 H, Calcium 8.9 Micro: Microbiology 12/26/24 07:15 Nasal Secretion MRSA (PCR) - Final Radiography Diagnostic Testing: Radiology Impression Shoulder X-Ray 12/26/24 09:45 IMPRESSION: Fluoroscopy as above. Reading Location: [facility] Physical Exam Const alert, oriented x3 and no apparent distress Constitutional Narrative: Pleasant elderly female, class II obesity, good energy level this morning, sitting up comfortably in bedside chair, conversing normally, in no acute distress. General Appearance: cooperative and comfortable HEENT normocephalic, head/scalp atraumatic, hearing grossly normal bilaterally, nasal mucous membranes and turbinates normal and moist oral mucous membranes Eyes PERRL, EOMs intact bilaterally and conjunctivae normal Neck full ROM Chest inspection of chest normal Resp normal respiratory effort and no use of accessory muscles Resp Narrative: Breathing comfortably on 2 L nasal cannula at rest. Mildly diminished breath sounds in bilateral lung bases, otherwise good air movement throughout with no wheezing or crackles noted. Cardio regular rate, regular rhythm, no murmurs and peripheral pulses 2+ throughout GI normal to inspection, nondistended, normoactive bowel sounds, soft to palpation, non-tender and non-distended Back/Spine normal ROM Extremity Extremity Narrative: Left arm stable in sling. Skin no rashes or lesions noted Psych mental status grossly normal Assessment & Plan Assessment/Plan (1) Shoulder fracture, left: (2) Hypoxia: PLAN: Plan Patient is an 89-year-old female who presented to [facility] on 12/26/2024 for planned orthopedic procedure. Orthopedic surgery primary. Medicine consulted postoperatively for medical management. 1. Left humeral head fracture ? Orthopedic surgery primary. PT/OT/case management following. Had initial fall with left shoulder pain on 12/17; on CT to have an acute comminuted moderately impacted fracture of the proximal humeral head and neck. S/p left reverse total shoulder arthroplasty on 12/26. Patient tolerated procedure well, no intraoperative complications. Postoperative pain control per orthopedic surgery. Planning for home with home health care on discharge. 2. Mild postoperative hypoxia in setting of COPD ? Patient requiring 2 L nasal cannula on postop day 1 to maintain appropriate oxygen saturations. Patient noted that she required supplemental oxygen at home after a previous orthopedic procedure. Patient with mild to moderately diminished breath sounds in bilateral lung bases but otherwise good air movement throughout with no wheezing or crackles noted. Suspect mild worsening of chronic lung disease primarily due to poor respiratory excursion and postoperative pain medications. Oxygen prescription signed for home-going oxygen. 3. A-fib on warfarin ? Stable normal sinus rhythm since admission. Warfarin held for procedure, will defer to orthopedics on timing of restarting this. Continue home Lopressor. Chronic medical conditions: ? Class II obesity: BMI 36 on admit. Complicates hospital course, care and prognosis. ? Depression: Stable. Continue home sertraline. ? Type 2 diabetes mellitus: Continue home NPH with Humalog sliding scale insulin with meals as needed. Holding home metformin. ? Hypertension: Continue home Lopressor, losartan and Lasix. ? Hypothyroidism: Continue home Synthroid. ? Chronic iron deficiency anemia: Hemoglobin 8.8 on postop day 1. Reportedly close to her baseline. Continue home iron supplement. Total clinical time spent by myself addressing the patient's medical issues, reviewing all the data, and collaborating with patient's care team: 35 minutes. Charges/Coding Visit Charges Inpatient E&M: 65661 Subs Hosp L2
--- NOTE | 2024-12-27 11:15 | CASEMGMT ---
RN CM Face to Face with patient for initial transition planning/care coordination assessment. RN CM introduced self and role at [facility]. Patient lying in bed, alert and oriented. Patient willing to participate in assessment and is able to answer all questions appropriately. Care providers, pharmacy, and demographics verified. Strata: 1 PCP: Issa Specialists: Lynne, ENVIRONMENTAL MONITORING SPECIALIST/Urology; Barbie, associate professor of psychology ; Jluis, matt [facility]erred [facility]: [facility] Benefit: yes Living Will/HPOA: daughter Jenny Pedro LNOK: daughters Living Arrangements: Patient lives with daughter in a 2 story home with bed and bath on first floor with 3 steps or ramp to enter the home. Patient states she was independent at home. Transportation: daughter, sister DME/HHC: Patient has shower chair, raised toilet, cane, walker, wheelchair, lift chair, cpap, nebulizer, and glucometer at home. [facility] and daughter has called [facility] and has made arrangements for C at discharge. CM to coordinate with [facility]. Patient wishes to discharge home with [facility]. Patient states she has no further needs or concerns at this time. CM to follow for discharge planning needs that may arise. Disposition Plan: Patient to discharge home with [facility], family support, and follow-up plans in place. Jael JANE, RN, CM
--- NOTE | 2024-12-27 12:04 | PCM.HOSP.N ---
Hospitalist Note I have reviewed the oxygen testing, and this patient qualifies for the home equipment and portability. The patient is mobile in the home and the community.
[2024-12-27 12:14] LABS: Bedside Glucose 438 mg/dL (74-106)
[2024-12-27] MEDS: Ferrous Sulfate 325 MG Tablet PO (12:22)
--- NOTE | 2024-12-27 12:23 | CASEMGMT ---
Addendum entered by Penny Castanon 12/28/24 09:43: Late entry for 12/27/24 at 1234- Pt aware of need for home oxygen. Provided with a verbal list of local DME providers, pt chose [employer]. Addendum entered by Penny Castanon 12/27/24 12:34: [facility] has accepted pt for services. Pt aware. Original Note: Referral sent to [facility] at [facility] and OT.
--- NOTE | 2024-12-27 15:40 | CASEMGMT ---
Met with patient to complete LASSITER form. LASSITER form and its content were verbally explained and patient's questions were answered to the best of my ability.? Patient voiced understanding and signed LASSITER form.? Patient provided a copy of signed LASSITER form and original placed in patient's chart.? Patient had no further questions. Alma Witt, Discharge Planning Asst
--- NOTE | 2024-12-27 15:45 | CASEMGMT ---
Script received for oxygen at discharge. Referral made to [facility] via [facility].
--- NOTE | 2024-12-27 16:29 | PCM.DC.SUM ---
Providers Date of Admission: 12/26/24 Primary Care Physician: Dr. Franko Parsons MD Consultations 12/26/24 17:24 Consult: Hospitalist Routine Consulting Provider: Fox Nicholson Reason for Consult: medical management for home meds and DM/ SSI EMERGENT Consult: No MD Notified: Yes Date Notified: 12/26/24 Time Notified: 17:24 Method of Notification: Text Reason For Visit: ERAS, Left Reverse Total Shoulder Replacement Diagnosis Discharge Diagnosis (1) Shoulder fracture, left: Status: Acute Code(s): S42.92XA - Fracture of left shoulder girdle, part unspecified, initial encounter for closed fracture (2) Hypoxia: Status: Acute Code(s): R09.02 - Hypoxemia Medications at Discharge Home Medications albuterol 90 mcg-budesonide 80 mcg/actuation HFA aerosol inhaler 1 inh inhalation Q4H PRN 12/17/24 albuterol sulfate 2.5 mg/0.5 mL solution for nebulization 2.5 mg inhalation Q4H PRN shortness of breath or wheezing 12/17/24 apple cider vinegar 500 mg tablet 500 mg PO DAILY 12/17/24 ascorbic acid (vitamin C) 250 mg tablet 250 mg PO QDAY 12/17/24 atorvastatin 20 mg tablet 20 mg PO QDAY 12/17/24 cinnamon bark 500 mg capsule (Cinnamon) 500 mg PO QDAY 12/17/24 ferrous sulfate 325 mg (65 mg iron) tablet 325 mg PO QDAY 12/17/24 furosemide 40 mg tablet 40 mg PO QDAY 12/17/24 gabapentin 600 mg tablet 600 mg PO TID 12/17/24 glimepiride 2 mg tablet 2 mg PO DAILY 12/17/24 hydrocodone-acetaminophen 5-325mg 5mg-325mg 1 tab PO Q4 PRN moderate pain 12/17/24 insulin NPH isoph U-100 human 100 unit/mL (3 mL) subcutaneous pen (Humulin N NPH U-100 Insulin KwikPen) 20 unit subcut DAILY 12/17/24 levothyroxine 88 mcg tablet 88 mcg PO DAILY 12/17/24 losartan 50 mg tablet 50 mg PO QDAY 12/17/24 metformin 500 mg tablet,extended release 24 hr 1,000 mg PO DAILY 12/17/24 methenamine hippurate 1 gram tablet 1 g PO BID 12/17/24 metoprolol tartrate 50 mg tablet 50 mg PO BID 12/17/24 nitroglycerin 0.4 mg sublingual tablet 0.4 mg sublingual Q5M PRN chest pain 12/17/24 omeprazole 20 mg capsule,delayed release 20 mg PO QDAY 12/17/24 sertraline 50 mg tablet 25 mg PO QHS 12/17/24 warfarin 6 mg tablet 6 mg PO SUTUWETHSA 12/17/24 aloe vera 500 mg capsule 500 mg PO DAILY 12/20/24 insulin NPH isoph U-100 human 100 unit/mL (3 mL) subcutaneous pen 10 unit subcut QPM 12/20/24 warfarin 6 mg tablet 9 mg PO MOFR 12/20/24 baclofen 5 mg tablet 5 mg PO BID PRN PRN muscle spasm 12/26/24 hydrocodone-acetaminophen 5-325mg 5mg-325mg 1 tab PO Q6H PRN pain 6 days #30 tabs 12/27/24 Hospital Course Summary of Care Provided Minutes Spent on Discharge: 15 Hospital Course: benign, got home care for home O2 set up Physical Exam Const oriented x3 and no apparent distress Constitutional Narrative: on room air Resp normal respiratory effort Extremity normal to inspection Extremity Narrative: drsg soft, dry, nvi ax nerve, mru and ain/pin strong radial pulse, block wore off. Weight / BMI Weight Weight: 185 lb Body Mass Index (BMI) 36.1 ABG / Lab / Microbiology Data 12/27/24 07:40 12/27/24 07:40 Laboratory: Laboratory Results - last 24 hr 12/26/24 16:32: POC Glucose 350 H 12/26/24 21:20: POC Glucose 424 H 12/27/24 06:17: POC Glucose 350 H 12/27/24 07:40: WBC 11.0, RBC 2.84 L, Hgb 8.8 L, Hct 27.3 L, MCV 96.1, MCH 31.0, MCHC 32.2, RDW Std Deviation 49.4 H, RDW Coeff of Stuart 14.3, Plt Count 304, MPV 10.1, PT 14.2, INR 1.1, Sodium 134, Potassium 4.5, Chloride 95 L, Carbon Dioxide 28.6, Anion Gap 10, BUN 36 H, Creatinine 1.49 H, Estim Creat Clear Calc 25.08 L, Est GFR (MDRD) Non-Af 34 L, BUN/Creatinine Ratio 24.1 H, Glucose 352 H, Calcium 8.9 12/27/24 11:57: POC Glucose 438 H Microbiology: Microbiology 12/26/24 07:15 Nasal Secretion MRSA (PCR) - Final Radiography Diagnostic Testing: Radiology Impression Shoulder X-Ray 12/26/24 09:45 IMPRESSION: Fluoroscopy as above. Reading Location: [id number] Instructions Discharge Diet: No restrictions Ice area for (Minutes): 10 Lifting Restrictions: no lifting over 1 pound Additional Activity Instructions: ok for pendulums 4x/day, ok to remove sling at rest Call your doctor if your incision/area has: Continuous Slow Oozing, Sudden Increased Bleeding, Increased Pain/ Swelling, Increased Redness, Foul Smelling Discharge and Swelling at the incision site Call your doctor if you observe: Fever of 101 or Higher, Coldness, Increased Pain and Numbness or Tingling Change Dressing in: leave in place till F/U Cleanse incision/area with: Do not get Incision Wet DC O2, CPAP, BIPAP Needs Home O2 Discharge instructions: Yes Type of respiratory needs?: Oxygen Oxygen frequency: Continuous Continuous oxygen liters per minute: 2 DC home with Oxygen: Yes Home O2 MD Review: I have reviewed the oxygen testing, and the patient qualifies for home oxygen equipment and portability. The patient is mobile in the home and the community. Please Follow Up With: Shailesh Bazzi MD When: next week Meaningful Use Info Meaningful Use Meaningful Use Diagnoses (Choose all that apply): None applicable Ischemic Stroke Statin Dosing Therapy Reference: STATIN DOSE THERAPY REFERENCE: * Patients > 75 years receive moderate or high dose statin therapy. * Patients 75 years or YOUNGER should receive HIGH intensity statin dose unless contraindicated. You will be required to document reason for non-treatment if statin daily dose does not meet guidelines. HIGH DOSE STATIN THERAPY DAILY Atorvastatin > than or = to 40 mg Rosuvastatin > than or = to 20 mg Amlodipine + Atorvastatin > than or = to 2.5/40 mg Ezetimibe + Simvastatin 10/80 mg Simvastatin 80mg Discharge Plan Admission Admit Date/Time: 12/26/24 11:10 Primary Reason for Your Visit: post L RSTA for fracture Attending Provider: Shailesh Bazzi Primary Care Provider: Franko Parsons Consulting Providers: Dioni Boudreaux; Fox Nicholson Discharge Orders/Prescriptions Prescriptions: New hydrocodone-acetaminophen 5-325 mg tablet 1 tab PO Q6H MDD 6 PRN (Reason: pain) 6 Days Qty: 30 0RF No Action albuterol sulfate 2.5 mg/0.5 mL solution for nebulization 2.5 mg inhalation Q4H PRN (Reason: shortness of breath or wheezing) albuterol-budesonide 90-80 mcg/actuation HFA aerosol inhaler 1 inh inhalation Q4H PRN Rx Instructions: as a single dose; may repeat up to 6 doses per day (12 inhalations) apple cider vinegar 500 mg tablet 500 mg PO DAILY ascorbic acid (vitamin C) 250 mg tablet 250 mg PO QDAY atorvastatin 20 mg tablet 20 mg PO QDAY cinnamon bark [Cinnamon] 500 mg capsule 500 mg PO QDAY ferrous sulfate 325 mg (65 mg iron) tablet 325 mg PO QDAY furosemide 40 mg tablet 40 mg PO QDAY gabapentin 600 mg tablet 600 mg PO TID Patient Comments: [NO ORIGINAL SIG] glimepiride 2 mg tablet 2 mg PO DAILY Patient Comments: [NO ORIGINAL SIG] hydrocodone-acetaminophen 5-325 mg tablet 1 tab PO Q4 PRN (Reason: moderate pain) Humulin N NPH Insulin KwikPen 100 unit/mL (3 mL) insulin pen 20 unit subcut DAILY Rx Instructions: inject under the skin, 20U in the AM and 10U in the PM levothyroxine 88 mcg tablet 88 mcg PO DAILY Patient Comments: [NO ORIGINAL SIG] losartan 50 mg tablet 50 mg PO QDAY metformin 500 mg tablet extended release 24 hr 1,000 mg PO DAILY methenamine hippurate 1 gram tablet 1 g PO BID Patient Comments: [NO ORIGINAL SIG] metoprolol tartrate 50 mg tablet 50 mg PO BID nitroglycerin 0.4 mg tablet, sublingual 0.4 mg sublingual Q5M PRN (Reason: chest pain) omeprazole 20 mg capsule,delayed release(DR/EC) 20 mg PO QDAY sertraline 50 mg tablet 25 mg PO QHS warfarin 6 mg tablet 6 mg PO SUTUWETHSA aloe vera 500 mg capsule 500 mg PO DAILY insulin NPH isoph U-100 human 100 unit/mL (3 mL) insulin pen 10 unit subcut QPM warfarin 6 mg tablet 9 mg PO MOFR baclofen 5 mg tablet 5 mg PO BID PRN PRN (Reason: muscle spasm) Referrals / Follow Up: Franko Parsons MD [Primary Care Provider] - Shailesh Bazzi MD [Med Staff - Active Staff] - Disposition Disposition (needs filled in before D/C Order can be placed): Home, Self Care
[2024-12-27 16:33] LABS: Bedside Glucose 321 mg/dL (74-106)
--- NOTE | 2024-12-28 09:39 | CASEMGMT ---
Received note that pt wants a hemiwalker. Spoke with Alvaro at [facility] for options to get to pt home. TC to pt home, spoke with pt dtr but pt in background. Pt would like to use same company that the oxygen is from for the hemiwalker. Offered to have hemiwalker drop shipped for the weekend or they could pick up worker at the [place] branch. Pt chose drop shipped. Pt is aware that it should be delivered this weekend. Referral sent to [facility] via [facility].
== END 2024-12-27 17:30 | disposition home health service (06) ==
LOC: SDC 11:28 → MS3 11:29
PROVIDERS: Anesthesiology; Admitting Provider Orthopaedic Surgery Sports Medicine; PCP Family Medicine; Referring Provider Orthopaedic Surgery Sports Medicine; Visit Provider Orthopaedic Surgery Sports Medicine
PROC: (CPT 23472; principal; 2024-12-26 08:00)
DX: S42.92XA Fracture of left shoulder girdle, part unspecified, initial encounter for closed fracture (principal); J44.9 Chronic obstructive pulmonary disease, unspecified; E11.9 Type 2 diabetes mellitus without complications; Z79.4 Long term (current) use of insulin; K21.9 Gastro-esophageal reflux disease without esophagitis; Z79.890 Hormone replacement therapy; Z79.84 Long term (current) use of oral hypoglycemic drugs; Z68.36 Body mass index [BMI] 36.0-36.9, adult; F32.A Depression, unspecified; E03.9 Hypothyroidism, unspecified; E66.812 Obesity, class 2; I10 Essential (primary) hypertension; D50.9 Iron deficiency anemia, unspecified; E78.00 Pure hypercholesterolemia, unspecified; Z79.899 Other long term (current) drug therapy
CPT/HCPCS: 23472; 01638; 23430; 36416; 73030; 76000; 80048; 82962; 83735; 85027; 85610; 86850; 86900; 86901; 87641; 94640; 94668; 94762; 96365; 96366; 97110; 97162; 97166; 97535; 99221; C1713; C1776; A4216; G0378; J2405